=== PATIENT | female | born 2000 | race Two or more races ===

== ENCOUNTER 2021-04-20 12:54 | Inpatient (IN) ==
[2021-04-20] MEDS ORDERED: LORazepam 1 MG/2 ML VIAL IV STA (14:31)
[2021-04-20] MEDS ORDERED: SODIUM CHLORIDE 0.9% 1000ML 1,000 ML IV ONE ×2 (14:31→19:17)
[2021-04-20] MEDS ORDERED: ONDANSETRON INJ 2 MG/ML 2 ML VIAL IV STA (14:34)
[2021-04-20] MEDS ORDERED: diphenhydrAMINE 50 MG/ML VIAL IV STA ×2 (14:34→19:17)
[2021-04-20 14:41] LABS: Basophils # (auto) 0.01 K/uL (0-0.2); Basophils % (auto) 0.1 %; Eosinophils # (auto) 0.01 K/uL (0-0.5); Eosinophils % (auto) 0.1 %; Hematocrit (blood only) 40.3 % (37-47); Hemoglobin 13.9 g/dL (12.0-16.0); Immature Granulocytes # (auto) 0.02 K/uL (0.00-0.02); Immature Granulocytes % (auto) 0.3 %; Lymphocytes # (auto) 1.83 K/uL (1.2-3.4); Lymphocytes % (auto) 23.4 %; Mean Corpuscular Hemoglobin 31.9 pg (25-34); Mean Corpuscular Hgb Conc 34.5 g/dL (32-36); Mean Corpuscular Volume 92.4 fL (80-100); Mean Platelet Volume 9.8 fL (7.4-10.4); Monocytes # (auto) 0.49 K/uL (0.11-0.59); Monocytes % (auto) 6.3 %; Neutrophils # (auto) 5.47 K/uL (1.4-6.5); Neutrophils % (auto) 69.8 %; Platelet Count 332 K/uL (130-400); RDW Coefficient of Variation 13.5 % (11.5-14.5); Red Blood Count 4.36 M/uL (4.2-5.4); White Blood Count 7.83 K/uL (4.8-10.8)
[2021-04-20 14:44] LABS: Pregnancy Test, Serum Negative (Negative)
[2021-04-20 14:49] LABS: Alanine Aminotransferase 19 U/L (12-78); Albumin Level 4.8 gm/dl (3.4-5.0); Aspartate Aminotransferase 17 U/L (15-37); BUN Creatinine Ratio 21.9 (10-20); Blood Urea Nitrogen 13 mg/dl (7-18); Calcium 9.7 mg/dl (8.5-10.1); Carbon Dioxide 19 mmol/L (21-32); Chloride 108 mmol/L (98-107); Creatinine Clr Calc Pharmacy 138.8 ml/min; Est GFR (African American) > 150.0 ml/min; Est GFR (Non-African American) 132.7 ml/min; Glucose 79 mg/dl (70-99); Magnesium 2.3 mg/dl (1.8-2.4); Potassium 3.6 mmol/L (3.5-5.1); Sodium 137 mmol/L (136-145)
[2021-04-20 14:59] LABS: Alkaline Phosphatase 76 U/L (45-117); Bilirubin,Total 0.8 mg/dl (0.2-1); Globulin 4.6 gm/dl (2.5-4.0); Total Protein 9.4 gm/dl (6.4-8.2)
[2021-04-20 15:02] LABS: Acetaminophen < 2 ug/ml (10-30); Salicylate < 1.7 mg/dl (2.8-20)
--- NOTE | 2021-04-20 15:16 | Emergency Department Note ---
Impression & Plan Panic attacks, Nausea, Marijuana use, Dehydration ED Provider Note NAME: SARKIS CISNEROS AGE: 20 SEX: F ARRIVES VIA: Walk-In INFORMANT: Patient, ED PROVIDER(S): Lester Moraes MD CHIEF COMPLAINT: Panic attacks PLAN: Disposition: Admit / [facility] MEDICAL DECISION MAKING: The patient is a 20-year-old woman with a past medical history of bipolar disorder, anxiety who presents emergency department with recurrent and prolonged panic attacks which she reports has been ongoing all day and was seen emergency department yesterday for similar symptoms associated nausea. She denies any SI/HI. She reports that these panic attacks have been more frequent and prolonged than they have in the past. She denies any recent fevers, chills, cough congestion, diarrhea or urinary symptoms. She does smoke marijuana daily but reports she has not for the past several days due to her anxiety and nausea. Yesterday she did have blood work that was unremarkable and was discharged with home pack of Ativan which she reports she did take. Reports a family member did call the hospital to check if [facility] had beds open and per her understanding they are aware that she is coming in" waiting for her". On arrival the patient is very anxious appearing, hyperventilating with tachycardia in the 110s, respiratory rate in the low 30s vital signs otherwise stable. She appears clinically dry. Abdomen is benign. WBC, H/H and platelets within normal limits. Chemistry with no significant metabolic acidosis. Bicarbonate 19 likely related to the patient's clinically dry appearance. BUN/creatinine> 20. Electrolytes LFTs without significant ab normality. Lipase is not elevated. hCG negative. TSH within normal limits. Blood alcohol negative. COVID-19 PCR was negative. UA without convincing evidence of infection. Urine ketones presents c/w patient's clinically dry appearance. Urine drug screen positive for marijuana. Symptoms somewhat improved with IVF hydration Ativan and antiemetics. Patient medically cleared. Referral was made to [facility] who evaluated the patient at the bedside and accepted the patient for admission. Triage Nursing notes reviewed and agree them. Prior medical records reviewed Vital Signs: reviewed and remarkable for tachycardia. Differential diagnosis: Mood disorder, infection, hypoglycemia, electrolyte abnormalities, cardiac sources, intracerebral event, toxicologic, trauma, neurologic, as well as other pathologies. ER treatment provided: See below. Diagnostics interpreted by me: Cardiac Monitoring: An order for continuous cardiac monitoring was placed and demonstrated sinus tachyardia, 110 bpm, no ectopy. Laboratory studies: See below HPI: The patient is a 20-year-old woman with a past medical history of bipolar disorder, anxiety who presents emergency department with recurrent and prolonged panic attacks which she reports has been ongoing all day and was seen emergency department yesterday for similar symptoms associated nausea. She denies any SI/HI. She reports that these panic attacks have been more frequent and prolonged than they have in the past. She denies any recent fevers, chills, cough congestion, diarrhea or urinary symptoms. She does smoke marijuana daily but reports she has not for the past several days due to her anxiety and nausea. Yesterday she did have blood work that was unremarkable and was discharged with home pack of Ativan which she reports she did take. Reports a family member did call the hospital to check if [facility] had beds open and per her understanding they are aware that she is coming in" waiting for her". ROS: See above HPI for pertinent positives & negatives. A total of 10 systems reviewed and were otherwise negative. PAST MEDICAL HISTORY:See Below PAST SURGICAL HISTORY:See Below FAMILY HISTORY:See Below SOCIAL HISTORY:See Below HOME MEDICATIONS:See Below ALLERGIES:See Below VITALS:See Below PHYSICAL EXAMINATION: GENERAL: Awake, alert, anxious-appearing, in no distress HENT: Normocephalic, atraumatic. Oropharynx with dry mucous membranes and otherwise unremarkable. EYES: Normal conjunctiva. Sclera non-icteric. NECK: Supple. No nuchal rigidity. FROM. No JVD. RESPIRATORY: Clear to auscultation. CARDIAC: Tachycardic rate, normal rhythm. Extremities warm and well perfused. Pulses equal. ABDOMEN: Soft, non-distended. No tenderness to palpation. No rebound or guarding. No masses. RECTAL: Deferred. MUSCULOSKELETAL: Chest examination reveals no tenderness. The back is symmetrical on inspection without obvious abnormality. There is no CVA tenderness to palpation. No joint edema. LOWER EXTREMITIES: Calves are equal size bilaterally and non-tender. No edema. No discoloration. NEURO: Normal sensorium. No sensory or motor deficits noted. SKIN: No rash or jaundice noted. PSYCH: Denies SI/HI. Lester Moraes MD Past Med/Surg History Medical History Anxiety Arthritis At risk for prolonged QT interval syndrome On Seroquel and Plaquenil - EKG 10/29/2020 negative for QTc prongation Bipolar 1 disorder, mixed Depression Juvenile rheumatoid arthritis Lactose intolerance Normal colonoscopy Pneumonia Surgical History S/P endoscopy Family History Mother Celiac disease Ankylosing spondylitis Sister Psoriatic arthritis Denies family history of Ovarian cancer Prostate cancer Myocardial infarction Breast cancer Lung cancer Colorectal cancer Social History Smoking Status: Never smoker Second Hand Exposure: No; Hx Alcohol Use: Yes Alcohol type: beer, wine and hard liquor Alcohol Intake Frequency: Monthly or Less Alcohol Intake Frequency Comment: socially Hx Substance Use: Yes Prescribed Medications: Marijuana Preferred Language: Yoruba Communication Ability: Effective Visual Impairment: Limited Hearing Ability: Normal Technical Product Manager Required: No Beliefs That Will Affect Care: None marital status: Single Current Living Situation: Other Current Living Situation Comment: lives with 3 roommates current occupational status: student How many Children do You have: 0 Feels Safe at Home: Yes Childhood Exposure to Second-Hand Smoke: No caffeine: Yes (tea occassionally ) Dental Care, Regularly: No Physical Activity Frequency: 1-2 Times per Week Physical Activity Frequency Comment: hiking Seatbelt Use: always Sunscreen Use: Yes Assistive Devices: None Allergies Allergies Allergy/AdvReac Type Severity Reaction Status Date / Time No Known Allergies Allergy Verified 04/20/21 15:10 Home Meds Home Medications Medication Instructions Recorded Confirmed cholecalciferol (vitamin D3) 25 1,000 unit PO HS 07/12/19 04/20/21 mcg (1,000 unit) capsule (Vitamin D3) quetiapine 300 mg tablet (Seroquel) 300 mg PO HS 04/20/21 04/20/21 ropinirole 1 mg tablet 1 mg PO HS 04/20/21 04/20/21 Previous Rx's Medication Instructions Recorded hydroxychloroquine 200 mg tablet 200 mg PO HS #90 tab 02/15/21 (Plaquenil) Results & Data (ED) Vital Signs Vital Signs - 24 hr 04/20/21 13:14 04/20/21 13:34 04/20/21 16:00 Temperature 36.6 C 36.6 C Temperature Source Temporal Artery Scan Oral Pulse Rate 100 H Pulse Rate [Apical] 110 H 115 H Pulse Rhythm [Apical] Regular Regular Pulse Strength [Apical] Normal Respiratory Rate 18 24 20 Respiratory Effort / Characteristics Non-Labored Non-Labored Respiratory Depth Normal Normal Blood Pressure 112/69 Blood Pressure [Left Arm] 135/80 130/81 Blood Pressure Mean 83 Blood Pressure Mean [Left Arm] 98 97 Pulse Oximetry 97 96 98 Oxygen Delivery Method Room Air Room Air Room Air Sepsis Recent Fever Within 48 Hours No Sepsis New/Unexplained Change in Mental Status No Sepsis Action Taken by Nursing No Action Required 04/20/21 18:00 04/20/21 20:00 Temperature Temperature Source Pulse Rate Pulse Rate [Apical] 110 H 131 H Pulse Rhythm [Apical] Regular Pulse Strength [Apical] Respiratory Rate 16 16 Respiratory Effort / Characteristics Non-Labored Respiratory Depth Normal Blood Pressure Blood Pressure [Left Arm] 132/80 135/80 Blood Pressure Mean Blood Pressure Mean [Left Arm] 97 98 Pulse Oximetry 98 98 Oxygen Delivery Method Room Air Sepsis Recent Fever Within 48 Hours Sepsis New/Unexplained Change in Mental Status Sepsis Action Taken by Nursing Laboratory Data Attestation: I reviewed the patient's lab results. Result diagrams: 04/20/21 14:04 04/20/21 14:04 Lab Results 04/20/21 04/20/21 04/20/21 Range/Units 14:04 14:04 14:04 WBC 7.83 (4.8-10.8) K/uL RBC 4.36 (4.2-5.4) M/uL Hgb 13.9 (12.0-16.0) g/dL Hct 40.3 (37-47) % MCV 92.4 (80-100) fL MCH 31.9 (25-34) pg MCHC 34.5 (32-36) g/dL RDW Std Deviation 45.0 (36.4-46.3) fL RDW Coeff of Carlos 13.5 (11.5-14.5) % Plt Count 332 (130-400) K/uL MPV 9.8 (7.4-10.4) fL Immature Gran % (Auto) 0.3 % Neut % (Auto) 69.8 % Lymph % (Auto) 23.4 % [place] % (Auto) 6.3 % Eos % (Auto) 0.1 % Baso % (Auto) 0.1 % Neut # (Auto) 5.47 (1.4-6.5) K/uL Lymph # (Auto) 1.83 (1.2-3.4) K/uL [place] # (Auto) 0.49 (0.11-0.59) K/uL Eos # (Auto) 0.01 (0-0.5) K/uL Baso # (Auto) 0.01 (0-0.2) K/uL Immature Gran # (Auto) 0.02 (0.00-0.02) K/uL Sodium 137 (136-145) mmol/L Potassium 3.6 (3.5-5.1) mmol/L Chloride 108 H (98-107) mmol/L Carbon Dioxide 19 L (21-32) mmol/L Anion Gap 10.0 (3-11) BUN 13 (7-18) mg/dl Creatinine 0.58 L (0.6-1.2) mg/dl Est Cr Clr Drug Dosing 138.8 ml/min Est GFR ( Amer) > 150.0 ml/min Est GFR (Non-Af Amer) 132.7 ml/min BUN/Creatinine Ratio 21.9 H (10-20) Glucose 79 (70-99) mg/dl Calcium 9.7 (8.5-10.1) mg/dl Magnesium 2.3 (1.8-2.4) mg/dl Total Bilirubin 0.8 (0.2-1) mg/dl AST 17 (15-37) U/L ALT 19 (12-78) U/L Alkaline Phosphatase 76 (45-117) U/L Total Protein 9.4 H (6.4-8.2) gm/dl Albumin 4.8 (3.4-5.0) gm/dl Globulin 4.6 H (2.5-4.0) gm/dl Albumin/Globulin Ratio 1.0 (0.9-2) Lipase (73-393) U/L TSH 1.090 (0.300-4.500) uIu/ml HCG, Qual (Negative) Salicylates < 1.7 L (2.8-20) mg/dl Acetaminophen < 2 L (10-30) ug/ml Ethyl Alcohol mg/dL (0-3) mg/dl COVID-19 Eval Order SARS-CoV-2 (PCR) (Negative) 04/20/21 04/20/21 04/20/21 Range/Units 14:04 14:04 14:55 WBC (4.8-10.8) K/uL RBC (4.2-5.4) M/uL Hgb (12.0-16.0) g/dL Hct (37-47) % MCV (80-100) fL MCH (25-34) pg MCHC (32-36) g/dL RDW Std Deviation (36.4-46.3) fL RDW Coeff of Carlos (11.5-14.5) % Plt Count (130-400) K/uL MPV (7.4-10.4) fL Immature Gran % (Auto) % Neut % (Auto) % Lymph % (Auto) % [place] % (Auto) % Eos % (Auto) % Baso % (Auto) % Neut # (Auto) (1.4-6.5) K/uL Lymph # (Auto) (1.2-3.4) K/uL [place] # (Auto) (0.11-0.59) K/uL Eos # (Auto) (0-0.5) K/uL Baso # (Auto) (0-0.2) K/uL Immature Gran # (Auto) (0.00-0.02) K/uL Sodium (136-145) mmol/L Potassium (3.5-5.1) mmol/L Chloride (98-107) mmol/L Carbon Dioxide (21-32) mmol/L Anion Gap (3-11) BUN (7-18) mg/dl Creatinine (0.6-1.2) mg/dl Est Cr Clr Drug Dosing ml/min Est GFR ( Amer) ml/min Est GFR (Non-Af Amer) ml/min BUN/Creatinine Ratio (10-20) Glucose (70-99) mg/dl Calcium (8.5-10.1) mg/dl Magnesium (1.8-2.4) mg/dl Total Bilirubin (0.2-1) mg/dl AST (15-37) U/L ALT (12-78) U/L Alkaline Phosphatase (45-117) U/L Total Protein (6.4-8.2) gm/dl Albumin (3.4-5.0) gm/dl Globulin (2.5-4.0) gm/dl Albumin/Globulin Ratio (0.9-2) Lipase 177 (73-393) U/L TSH (0.300-4.500) uIu/ml HCG, Qual Negative (Negative) Salicylates (2.8-20) mg/dl Acetaminophen (10-30) ug/ml Ethyl Alcohol mg/dL < 3.0 (0-3) mg/dl COVID-19 Eval Order SARS-CoV-2 (PCR) (Negative) 04/20/21 04/20/21 Range/Units 14:55 14:55 WBC (4.8-10.8) K/uL RBC (4.2-5.4) M/uL Hgb (12.0-16.0) g/dL Hct (37-47) % MCV (80-100) fL MCH (25-34) pg MCHC (32-36) g/dL RDW Std Deviation (36.4-46.3) fL RDW Coeff of Carlos (11.5-14.5) % Plt Count (130-400) K/uL MPV (7.4-10.4) fL Immature Gran % (Auto) % Neut % (Auto) % Lymph % (Auto) % [place] % (Auto) % Eos % (Auto) % Baso % (Auto) % Neut # (Auto) (1.4-6.5) K/uL Lymph # (Auto) (1.2-3.4) K/uL [place] # (Auto) (0.11-0.59) K/uL Eos # (Auto) (0-0.5) K/uL Baso # (Auto) (0-0.2) K/uL Immature Gran # (Auto) (0.00-0.02) K/uL Sodium (136-145) mmol/L Potassium (3.5-5.1) mmol/L Chloride (98-107) mmol/L Carbon Dioxide (21-32) mmol/L Anion Gap (3-11) BUN (7-18) mg/dl Creatinine (0.6-1.2) mg/dl Est Cr Clr Drug Dosing ml/min Est GFR ( Amer) ml/min Est GFR (Non-Af Amer) ml/min BUN/Creatinine Ratio (10-20) Glucose (70-99) mg/dl Calcium (8.5-10.1) mg/dl Magnesium (1.8-2.4) mg/dl Total Bilirubin (0.2-1) mg/dl AST (15-37) U/L ALT (12-78) U/L Alkaline Phosphatase (45-117) U/L Total Protein (6.4-8.2) gm/dl Albumin (3.4-5.0) gm/dl Globulin (2.5-4.0) gm/dl Albumin/Globulin Ratio (0.9-2) Lipase (73-393) U/L TSH (0.300-4.500) uIu/ml HCG, Qual (Negative) Salicylates (2.8-20) mg/dl Acetaminophen (10-30) ug/ml Ethyl Alcohol mg/dL (0-3) mg/dl COVID-19 Eval Order Cov[facility]19 at [facility] SARS-CoV-2 (PCR) NEGATIVE (Negative) Administered Medications Diazepam (Diazepam 5 Mg Tablet) 5 mg PO Q6H PRN PRN Reason: Anxiety Stop: 05/20/21 22:09 Last Admin: 04/21/21 00:59 Dose: 5 mg Documented by: [id number] Ondansetron HCl (Ondansetron 4 Mg Od Tab) 4 mg PO Q12H PRN PRN Reason: Nausea Stop: 05/20/21 22:06 Last Admin: 04/21/21 00:05 Dose: 4 mg Documented by: [id number] Discontinued Medications Diphenhydramine HCl (Diphenhydramine 50 Mg/Ml Vial) 25 mg IV NOW STA Stop: 04/20/21 14:35 Last Admin: 04/20/21 14:49 Dose: Not Given Documented by: [id number] Diphenhydramine HCl (Diphenhydramine 50 Mg/Ml Vial) 25 mg IV NOW STA Stop: 04/20/21 19:18 Last Admin: 04/20/21 19:36 Dose: Not Given Documented by: [id number] Sodium Chloride (Nss 1000ml) 1,000 mls @ 999 mls/hr IV .Q1H1M ONE Stop: 04/20/21 15:31 Last Infusion: 04/20/21 16:21 Dose: 0 mls/hr Documented by: [id number] Admin: 04/20/21 14:45 Dose: 999 mls/hr Documented by: [id number] Lorazepam (Ativan) 1 mg in 2 mls @ 2 mls/min IV NOW STA Stop: 04/20/21 14:32 Last Admin: 04/20/21 14:45 Dose: 2 mls/min Documented by: [id number] Lorazepam (Ativan) 2 mg in 4 mls @ 4 mls/min IV NOW STA Stop: 04/20/21 17:19 Last Admin: 04/20/21 17:35 Dose: Not Given Documented by: [id number] Sodium Chloride (Nss 1000ml) 1,000 mls @ 999 mls/hr IV .Q1H1M ONE Stop: 04/20/21 20:17 Last Infusion: 04/20/21 21:12 Dose: 0 mls/hr Documented by: [id number] Admin: 04/20/21 19:36 Dose: 999 mls/hr Documented by: [id number] Promethazine HCl (Phenergan) 25 mg in 51 mls @ 204 mls/hr IV NOW STA Stop: 04/20/21 19:31 Last Infusion: 04/20/21 21:12 Dose: 0 mls/hr Documented by: [id number] Admin: 04/20/21 19:36 Dose: 204 mls/hr Documented by: [id number] Lorazepam (Lorazepam 1 Mg Tab) 2 mg SL NOW STA Stop: 04/20/21 17:23 Last Admin: 04/20/21 17:34 Dose: 2 mg Documented by: [id number] Ondansetron HCl (Ondansetron Inj 2 Mg/Ml 2 Ml Vial) 4 mg IV NOW STA Stop: 04/20/21 14:35 Last Admin: 04/20/21 14:49 Dose: 4 mg Documented by: [id number] Discharge Plan Visit Data Chief Complaint: Nausea Stated Complaint: ANXIETY, NAUSEA, FEVER, SHAKING ED Provider: Lester Moraes Discharge Problem: Panic attacks, Nausea, Marijuana use, Dehydration Patient Disposition: Admitted As Inpatient Discharge Instructions Interventions: ED Discharge Assessment Last Done: 04/20/21 21:45
[2021-04-20] MEDS ORDERED: LORazepam 2 MG/4 ML VIAL IV STA (17:18)
[2021-04-20] MEDS ORDERED: LORazepam 1 MG TAB SL STA (17:22)
[2021-04-20] MEDS ORDERED: PROMETHAZINE 25 MG/51 ML BAG IV STA (19:17)
[2021-04-20 21:53] LABS: Appearance Urine Clear (Clear); Bilirubin Urine Negative (Negative); Blood Urine Negative (Negative); Color Urine Yellow; Glucose Urine UA Negative (Negative); Ketones Urine 4+ (Negative); Leukocyte Esterase Urine Negative (Negative); Nitrite Urine Negative (Negative); Protein Urine Negative (Negative); Specific Gravity Urine 1.023 (1.000-1.030); Urobilinogen Urine Negative (Negative); pH Urine 5.5 (4.5-7.5)
[2021-04-20 22:00] LABS: Amphetamines+Metham, Urine Neg (Neg); Barbiturates, Urine Neg (Neg); Benzodiazepine, Urine Neg (Neg); Cocaine, Urine Neg (Neg); MDMA (Ecstacy), Urine Neg (Neg); Methadone, Urine Neg (Neg); Opiate, Urine Neg (Neg); Phencyclidine, Urine Neg (Neg)
[2021-04-20] MEDS ORDERED: SODIUM CHLORIDE 0.65% NA SOLN 45 ML (OCEAN) PRN (22:02)
[2021-04-20] MEDS ORDERED: hydrOXYzine HCl 25 MG TAB PO PRN ×2 (22:02)
[2021-04-20] MEDS ORDERED: ALUMINUM/MAGNESIUM SUSP 30 ML UDC PO PRN (22:02)
[2021-04-20] MEDS ORDERED: ACETAMINOPHEN 325 MG TAB PO PRN (22:02)
[2021-04-20] MEDS ORDERED: BISMUTH SUBSALICYLATE LIQD 236 ML PO PRN (22:02)
[2021-04-20] MEDS ORDERED: MAGNESIUM HYDROXIDE SUSP 30 ML UDC PO PRN (22:02)
[2021-04-21] MEDS: ONDANSETRON 4 MG OD TAB PO PRN ×2 (00:05→12:49)
[2021-04-21] MEDS: diazePAM 5 MG TABLET PO PRN ×2 (00:59→10:24)
[2021-04-21] MEDS ORDERED: haloperidoL 5 MG TAB PO STA (01:52)
[2021-04-21] MEDS ORDERED: HALOPERIDOL LACTATE 5 MG/ML 1 ML VIAL ONE ×2 (01:57→10:42)
[2021-04-21] MEDS ORDERED: BENZTROPINE MESYLATE 1 MG TAB PO STA (04:52)
[2021-04-21] MEDS ORDERED: BENZTROPINE MESYLATE 1 MG/ML 2 ML AMP IM STA ×2 (04:58→10:49)
[2021-04-21] MEDS ORDERED: diazePAM 5 MG TABLET PO ONE (07:16)
[2021-04-21] MEDS ORDERED: HALOPERIDOL LACTATE 5 MG/ML 1 ML VIAL IM STA (10:37)
[2021-04-21] MEDS ORDERED: BENZTROPINE MESYLATE 1 MG/ML 2 ML AMP ONE (10:53)
[2021-04-21] MEDS ORDERED: LORazepam 2 MG/ML VIAL (IM USE) IM STA (11:52)
[2021-04-21] MEDS: LORazepam 1 MG TAB PO PRN ×2 (15:04→20:31)
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
[2021-04-21] MEDS: BENZTROPINE MESYLATE 1 MG TAB PO SCH (20:31)
[2021-04-21] MEDS: OLANZapine 10 MG TAB PO SCH (20:32)
[2021-04-22] MEDS: LORazepam 1 MG TAB PO PRN (06:33)
[2021-04-22] MEDS: ONDANSETRON 4 MG OD TAB PO PRN ×2 (06:45→20:04)
[2021-04-22] MEDS: OLANZapine 10 MG TAB PO SCH ×2 (08:00→20:04)
[2021-04-22] MEDS: BENZTROPINE MESYLATE 1 MG TAB PO SCH ×2 (08:01→20:05)
[2021-04-22] MEDS: diazePAM 5 MG TABLET PO PRN (08:55)
[2021-04-22] MEDS ORDERED: LORazepam 1 MG TAB PO PRN (09:46)
[2021-04-22] MEDS ORDERED: diazePAM 5 MG TABLET PO PRN (09:46)
--- NOTE | 2021-04-22 11:01 | Psychiatric Progress Note ---
Date of Service April 22, 2021 Impression / Recommendations Impression 20-year-old female with a history of bipolar disorder presenting in an anxious state. Patient will benefit from inpatient hospitalization for safety, stabilization, medication management. Patient may be in a hypomanic state currently as she is extremely anxious and it has not responded to multiple doses of antipsychotics. We will continue with antipsychotic treatment for the purposes of mood stabilization and assist with benzodiazepines in the meantime. There seems to be a lot of personality contributing to patient's presentation. We will continue to stabilize on medications and observe for any psychotic symptoms. (1) Bipolar 1 disorder, mixed: The patient was admitted to the [facility] on every 15 minute checks (behavioral with suicide precautions for safety. The patient will participate in group, recreational, and milieu therapies and will be offered additional individual and family sessions as clinically appropriate. 04/22/2021--patient compliant with Zyprexa medication seems to be helping. Dosages of Ativan and Valium will be lowered, propanolol will be started at 20 mg p.o. twice daily 04/21/2021atient will be prescribed Zyprexa 10 mg p.o. twice daily and will have Ativan and Valium available to her on a as needed basis. Protective Factors Assessment Employed: No Interval History Chief Complaint "Im just so anxious". Review of Systems Sleep Information Total Hours of Sleep: 8 Sleep Comments: pt on q-15 minute checks Meal Information Percent Meal Consumed - Breakfast: 0 Percent Meal Consumed - Lunch: 0 Percent Meal Consumed - Dinner: 0 Nutrition Comment: allowed to sleep Subjective Subjective Patient was seen & assessed and interval progress reviewed with treatment team nursing and social work. Patient continues to offer numerous complaints to scientific writer including somatic issues with nausea, as well as anxiety. Despite these claims, patient is seen to be laughing and joking with peers and does not appear to be anxious in the milieu. She was cooperative with her medications and is denying any side effects. She reports throwing up, however this was not observed by nursing staff. Picked Edge Sewing Machine Operator personally observed patient volitionally attempted to throw up without any vomitus. I spent 30 minutes with the patient, 50% of which was dedicated to counselling and coordination of care. Physical Exam Psychiatric Orientation: alert and oriented x 3 Apperance: appropriately groomed Eye Contact: + fair eye contact Motor Behavior: + psychomotor agitation Speech: + pressured speech Affect: + anxious affect and + labile affect Mood: + anxious mood Thought Process: + perseveration and + concrete thought process Thought Content: + paranoid and + cognitive distortions Suicidal Thoughts: denies suicidal thoughts Homicidal Thoughts: denies homicidal thoughts Hallucinations: no auditory hallucinations and no visual hallucinations Cognition: recent memory grossly intact Estimated Intelligence: average estimated intelligence Insight: + limited insight Judgement: + limited judgement Vital Signs (Past 24 Hours) Last Vital Signs Temp 37.2 C 04/22/21 07:00 Pulse 128 H 04/22/21 07:00 Resp 20 04/22/21 06:30 BP 119/80 04/22/21 06:35 Pulse Ox 100 04/21/21 01:30 [facility] & [facility] Current Inpatient Medications Current Inpatient Medications: Current Inpatient Medications Acetaminophen (Acetaminophen 325 Mg Tab) 650 mg PO Q4H PRN PRN Reason: Headache or Minor Fever Stop: 05/20/21 22:01 Al Hydrox/Mg Hydrox/Simethicone (Aluminum/Magnesium Susp 30 Ml Udc) 30 ml PO Q4H PRN PRN Reason: GI Upset Stop: 05/20/21 22:01 Benztropine Mesylate (Benztropine Mesylate 1 Mg Tab) 1 mg PO BID ANDRAE Stop: 05/21/21 20:59 Last Admin: 04/22/21 08:01 Dose: 1 mg Documented by: Bismuth Subsalicylate (Bismuth Subsalicylate Liqd 236 Ml) 15 ml PO PRN PRN PRN Reason: Loose Stool Stop: 05/20/21 22:01 Diazepam (Diazepam 5 Mg Tablet) 2.5 mg PO Q6H PRN PRN Reason: Anxiety Stop: 05/20/21 22:09 Lorazepam (Lorazepam 1 Mg Tab) 1 mg PO Q4 PRN PRN Reason: Anxiety Stop: 05/21/21 15:59 Magnesium Hydroxide (Magnesium Hydroxide Susp 30 Ml Udc) 30 ml PO DAILY PRN PRN Reason: Constipation Stop: 05/20/21 22:01 Olanzapine (Olanzapine 10 Mg Tab) 10 mg PO BID ANDRAE Stop: 05/21/21 20:59 Last Admin: 04/22/21 08:00 Dose: 10 mg Documented by: Ondansetron HCl (Ondansetron 4 Mg Od Tab) 4 mg PO Q12H PRN PRN Reason: Nausea Stop: 05/20/21 22:06 Last Admin: 04/22/21 06:45 Dose: 4 mg Documented by: Propranolol HCl (Propranolol Hcl 20 Mg Tab) 20 mg PO BID ANDRAE Stop: 05/22/21 10:29 Sodium Chloride (Sodium Chloride 0.65% Na Soln 45 Ml ([place])) 1 - 2 sprays NA PRN PRN PRN Reason: Nasal Dryness/Congestion Stop: 05/20/21 22:01 Mental Health & Subst Abuse Tx Therapist Name of Therapist: Dr. Begum
[2021-04-22] MEDS: PROPRANOLOL HCL 20 MG TAB PO SCH ×2 (13:38→20:05)
[2021-04-23] MEDS: ONDANSETRON 4 MG OD TAB PO PRN ×2 (07:46→20:31)
[2021-04-23] MEDS: BENZTROPINE MESYLATE 1 MG TAB PO SCH ×2 (08:26→20:20)
[2021-04-23] MEDS: PROPRANOLOL HCL 20 MG TAB PO SCH ×2 (08:26→20:20)
[2021-04-23] MEDS: OLANZapine 10 MG TAB PO SCH ×2 (08:26→20:20)
--- NOTE | 2021-04-23 14:11 | Psychiatric Progress Note ---
Date of Service April 23, 2021 Impression / Recommendations Impression 20-year-old female with a history of bipolar disorder presenting in an anxious state. Patient will benefit from inpatient hospitalization for safety, stabilization, medication management. We will continue with antipsychotic treatment for the purposes of mood stabilization and assist with benzodiazepines in the meantime. There seems to be a lot of personality contributing to patient's presentation. We will continue to stabilize on medications and observe for any psychotic symptoms. (1) Bipolar 1 disorder, mixed: The patient was admitted to the [facility] ([facility]) on every 15 minute checks (behavioral with suicide precautions for safety. The patient will participate in group, recreational, and milieu therapies and will be offered additional individual and family sessions as clinically appropriate. 04/23/2021atient tolerating the regimen well, we will start discharge planning for tomorrow. 04/22/2021--patient compliant with Zyprexa medication seems to be helping. Dosages of Ativan and Valium will be lowered, propanolol will be started at 20 mg p.o. twice daily 04/21/2021atient will be prescribed Zyprexa 10 mg p.o. twice daily and will have Ativan and Valium available to her on a as needed basis. Protective Factors Assessment Employed: No Interval History Chief Complaint "I am anxious but I do want to go home tomorrow". Review of Systems Sleep Information Total Hours of Sleep: 7.25 Sleep Comments: pt on q-15 minute checks Meal Information Percent Meal Consumed - Breakfast: 0 Percent Meal Consumed - Lunch: 0 Percent Meal Consumed - Dinner: 0 Nutrition Comment: pt. endorses nausea; kept dry toast for later Subjective Subjective Patient seen, chart reviewed and case discussed with treatment team, nursing and social work. Patient reports a good night of sleep and strong appetite. No side effects reported or observed. Regarding mood, patient reports some improvement which they attribute to the medications as well as the therapy they have received on the unit. Patient continues to deny any suicidal ideation. She reports that the medication has helped her that she feels less anxious on the current regimen. She is requesting to be discharged and is denying any further issues. She was informed of the discharge plan for tomorrow. Family meeting held, family in agreement with plan. I spent 30 minutes with the patient, 50% of which was dedicated to counselling and coordination of care. Physical Exam Psychiatric Orientation: alert and oriented x 3 Apperance: appropriately groomed Eye Contact: + fair eye contact Motor Behavior: + psychomotor agitation Speech: + pressured speech Affect: + anxious affect and + labile affect Mood: + anxious mood Thought Process: + perseveration and + concrete thought process Thought Content: + paranoid and + cognitive distortions Suicidal Thoughts: denies suicidal thoughts Homicidal Thoughts: denies homicidal thoughts Hallucinations: no auditory hallucinations and no visual hallucinations Cognition: recent memory grossly intact Estimated Intelligence: average estimated intelligence Insight: + limited insight Judgement: + limited judgement Vital Signs (Past 24 Hours) Last Vital Signs Temp 36.9 C 04/23/21 06:39 Pulse 67 04/23/21 06:39 Resp 16 04/23/21 06:39 BP 124/91 04/23/21 06:39 Pulse Ox 98 04/22/21 20:07 Results & Data ([facility]) Current Inpatient Medications Current Inpatient Medications: Current Inpatient Medications Acetaminophen (Acetaminophen 325 Mg Tab) 650 mg PO Q4H PRN PRN Reason: Headache or Minor Fever Stop: 05/20/21 22:01 Al Hydrox/Mg Hydrox/Simethicone (Aluminum/Magnesium Susp 30 Ml Udc) 30 ml PO Q4H PRN PRN Reason: GI Upset Stop: 05/20/21 22:01 Benztropine Mesylate (Benztropine Mesylate 1 Mg Tab) 1 mg PO BID [facility] Stop: 05/21/21 20:59 Last Admin: 04/23/21 08:26 Dose: 1 mg Documented by: Bismuth Subsalicylate (Bismuth Subsalicylate Liqd 236 Ml) 15 ml PO PRN PRN PRN Reason: Loose Stool Stop: 05/20/21 22:01 Lorazepam (Lorazepam 0.5 Mg Tab) 0.5 mg PO BID PRN PRN Reason: Anxiety Stop: 05/22/21 09:45 Magnesium Hydroxide (Magnesium Hydroxide Susp 30 Ml Udc) 30 ml PO DAILY PRN PRN Reason: Constipation Stop: 05/20/21 22:01 Olanzapine (Olanzapine 10 Mg Tab) 10 mg PO BID ANDRAE Stop: 05/21/21 20:59 Last Admin: 04/23/21 08:26 Dose: 10 mg Documented by: Ondansetron HCl (Ondansetron 4 Mg Od Tab) 4 mg PO Q12H PRN PRN Reason: Nausea Stop: 05/20/21 22:06 Last Admin: 04/23/21 07:46 Dose: 4 mg Documented by: Propranolol HCl (Propranolol Hcl 20 Mg Tab) 20 mg PO BID ANDRAE Stop: 05/22/21 10:29 Last Admin: 04/23/21 08:26 Dose: 20 mg Documented by: Sodium Chloride (Sodium Chloride 0.65% Na Soln 45 Ml ([place])) 1 - 2 sprays NA PRN PRN PRN Reason: Nasal Dryness/Congestion Stop: 05/20/21 22:01 Mental Health & Subst Abuse Tx Psychiatrist Name of Psychiatrist: [facility] - Dr. Winn Psychiatrist's Date of Appointment with Psychiatrist: 05/14/21 Time of Appointment with Psychiatrist: 10:00 AM Psychiatric Appointment Comment: [id number] [facility] [place] (appts are now in-person) Therapist Name of Therapist: [facility]- Dr. Begum Therapist's Date of Therapist Appointment: 04/25/21 Time of Therapist Appointment: 2:00 PM Therapy Appointment Comment: Via telephone (will email you link as usual) Post Discharge Appointments Primary Care Physician Name Of Family Doctor: [facility]- Dr. Jose J Ansari Primary Care Date of Appointment with PCP: 04/25/21 Time of Appointment with PCP: 11:30 AM Provider Appointment Comment: [id number] [facility] [place] [id number]
[2021-04-23] MEDS: LORazepam 0.5 MG TAB PO PRN (19:19)
[2021-04-24] MEDS: LORazepam 0.5 MG TAB PO PRN (06:15)
[2021-04-24] MEDS: BENZTROPINE MESYLATE 1 MG TAB PO SCH (07:20)
[2021-04-24] MEDS: OLANZapine 10 MG TAB PO SCH (07:20)
[2021-04-24] MEDS: PROPRANOLOL HCL 20 MG TAB PO SCH (07:20)
[2021-04-24 07:57] LABS: Marijuana Quant, GCMS Urine 770 ng/mL (<5)
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
== END 2021-04-24 11:25 | disposition home or self-care (01) | DRG 884 ==
LOC: ED 12:54 → 3S 22:04